=== PATIENT | male | born 1975 | race Caucasian/White ===

== ENCOUNTER 2021-03-11 19:32 | Emergency (ER) | payer SELFPAY ==
[~2021-03-11] VITALS: Ht 177.8 cm; Wt 86.2 kg
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
--- NOTE | 2021-03-11 20:03 | NUR ---
[facility] Unit 16G21 Badge [id number] at bedside.
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
--- NOTE | 2021-03-11 20:50 | NUR ---
Patient discharged to home in stable condition. A/O x4, no SOB or labored breathing, afebrile. Denies any pain/discomfort at this time. CD copy of xray provided to pt. Written and verbal after care instructions given. Patient verbalizes understanding of instructions. Stressed follow up or return to ER for worsening s/s. Steady gait. Picked up by family.
[2021-03-11 20:57] VITALS: BP 128/84
== END 2021-03-11 20:50 | disposition home or self-care (01) ==
LOC: ER 19:34
DX: S89.91XA Unspecified injury of right lower leg, initial encounter (principal); V23.4XXA Motorcycle driver injured in collision with car, pick-up truck or van in traffic accident, initial encounter; Y92.414 Local residential or business street as the place of occurrence of the external cause
CPT/HCPCS: 73590; A4663